=== PATIENT | female | born 1965 | race Caucasian/White ===

== ENCOUNTER 2016-07-16 12:53 | Emergency (ER) | payer OTHER ==
[~2016-07-16] VITALS: Wt 109.0 kg
[~2016-07-16 12:53] MED LIST: AMLO2.5T78 PO; ASPI-664 PO; ATOR10TA65 PO; DOXY-220 PO; ERGO500014 PO; ERGO500037 PO; MEDR5TAB PO
[2016-07-16] MEDS ORDERED: ASPIRIN 325 MG TAB PO STA (13:08)
[2016-07-16 13:49] LABS: BASOPHILS % 0.5 % (0.0-2.0); EOSINOPHILS # 0.5 10^3/ul (0.0-0.5); EOSINOPHILS % 5.6 % (0.0-7.0); HEMATOCRIT 42.8 % (37.0-47.0); HEMOGLOBIN 14.6 g/dl (12.0-16.0); LYMPHOCYTES % 31.1 % (15.0-51.0); MEAN CORPUSCULAR HGB CONC 34.1 g/dl (32.0-37.0); MEAN CORPUSCULAR VOLUME 85.1 fl (82.0-101.0); MEAN PLATELET VOLUME 8.6 fl (7.4-10.4); MONOCYTE # 0.9 10^3/ul (0.3-0.9); MONOCYTES % 9.2 % (0.0-11.0); NEUTROPHIL # 5.2 10^3/ul (1.6-7.5); NEUTROPHILS % 53.6 % (39.0-77.0); PLATELET COUNT 243 10^3/UL (140-440); RED BLOOD COUNT 5.03 10^6/ul (4.20-5.40); RED CELL DISTRIBUTION WIDTH 13.5 % (11.5-14.5); UNCORRECTED WBC 9.7 10^3/ul (4.8-10.8); WHITE BLOOD COUNT 9.7 10^3/ul (4.8-10.8)
[2016-07-16 13:51] LABS: CONDITION 1
[2016-07-16 13:54] LABS: CHLORIDE 102 mmol/L (97-110)
[2016-07-16 13:55] LABS: POTASSIUM 4.1 mmol/L (3.5-5.1); SODIUM 143 mmol/L (135-144)
[2016-07-16 13:56] LABS: INR 0.96; PROTIME 12.8 Sec (12.2-14.2)
[2016-07-16 13:57] LABS: CREATININE 0.68 mg/dl (0.44-1.00); PARTIAL THROMBOPLASTIN TIME 29.8 Sec (25.0-35.0)
[2016-07-16 13:58] LABS: ANION GAP 14 (8-16); BLOOD UREA NITROGEN 14 mg/dl (7-20); CALCIUM 9.2 mg/dl (8.4-10.2); CARBON DIOXIDE 31 mmol/L (21-31); GLUCOSE 94 mg/dl (70-220)
[2016-07-16] MEDS ORDERED: KETOROLAC 30 MG INJ IV STA (13:59)
[2016-07-16 14:07] LABS: B-TYPE NATRIURETIC PEPTIDE 179 PG/ML (0-125)
[2016-07-16 14:14] LABS: TROPONIN-I < 0.012 ng/ml (0.00-0.12)
[2016-07-16] MEDS ORDERED: ATOR40TA68 PO (14:16)
[2016-07-16] MEDS ORDERED: RANI150T9 PO (14:51)
[2016-07-16] MEDS ORDERED: NAPR-688 PO (14:51)
--- NOTE | 2016-07-16 15:00 | ERD ---
ER Documentation Chief Complaint Date/Time DATE: 07/16/16 TIME: 14:52 Chief Complaint CHEST PAIN SINCE THIS AM,MILD SOB. NO DIAPHORESIS, NONPROVOKED PER PT HPI This 81-year-old female presents to the ER for chest pain that began this morning. It is made worse by certain arm movements. It is made worse when she takes a deep breath. She thinks she may have an shortness of breath with it. He has no nausea vomiting. Has not had pain quite like this. Chest pain feels like a soreness like she got punched. No radiation. No shortness of breath currently ROS All systems reviewed and are negative except as per history of present illness. Medications Home Meds Active Scripts Naproxen* (Naproxen*) 500 Mg Tablet, 500 MG PO BID, #20 TAB Prov:SARITA MENENDEZ DO 07/16/16 Ranitidine Hcl* (Zantac*) 150 Mg Tablet, 150 MG PO BID, #60 TAB Prov:SARITA MENENDEZ DO 07/16/16 Reported Medications Atorvastatin* (Atorvastatin*) 40 Mg Tablet, 40 MG PO QHS, #30 TAB 07/16/16 Aspirin* (Aspirin* EC) 81 Mg Tablet.dr, 81 MG PO DAILY for 30 Days, TAB 11/07/15 Amlodipine Besylate* (Amlodipine Besylate*) 2.5 Mg Tablet, 2.5 MG PO DAILY, #30 TAB 11/06/15 Discontinued Reported Medications Ergocalciferol (Vitamin D2) (VITAMIN D2) 50,000 Unit Capsule, 88041 UNIT PO QSAT , #12 CAP 11/07/15 Atorvastatin Calcium (Atorvastatin Calcium) 10 Mg Tablet, 10 MG PO QHS for 30 Days, #30 TAB 11/07/15 Doxycycline Monohydrate* (Doxycycline Monohydrate*) 100 Mg Tablet, 100 MG PO BID , TAB STARTED ON 10-14-15 FOR 6 WEEKS 11/06/15 Medroxyprogesterone Acetate* (Medroxyprogesterone Acetate*) 5 Mg Tablet, 5 MG PO DAILY, TAB 11/06/15 Discontinued Scripts Atorvastatin Calcium (Atorvastatin Calcium) 10 Mg Tablet, 10 MG PO HS for 30 Days, TAB Prov:OSCAR PLUMMER ACUTE COORDINATOR 11/07/15 Ergocalciferol* (Drisdol* (Vitamin D2)) 50,000 Unit Capsule, 39900 UNIT PO Sa@09 , #12 CAP Prov:OSCAR PLUMMER ACUTE COORDINATOR 11/07/15 Aspirin* (Aspirin* EC) 81 Mg Tablet., 81 MG PO DAILY for 30 Days Prov:OSCAR PLUMMER ACUTE COORDINATOR 11/07/15 Allergies Allergies: Coded Allergies: aspirin (Verified Allergy, Mild, 11/06/15) Sulfa (Sulfonamide Antibiotics) (Verified Allergy, Unknown, 11/06/15) sulfacetamide (Verified Allergy, Unknown, 11/06/15) PMhx/Soc History of Surgery: No Anesthesia Reaction: No Hx Neurological Disorder: No Hx Respiratory Disorders: No Hx Cardiac Disorders: Yes (HTN) Hx Psychiatric Problems: No Hx Miscellaneous Medical Probl: No Hx Alcohol Use: No Hx Substance Use: No Hx Tobacco Use: No Smoking Status: Never smoker Physical Exam Vitals Vital Signs Date Time Temp Pulse Resp B/P Pulse Ox O2 Delivery O2 Flow Rate FiO2 07/16/16 13:30 Nasal Cannula 07/16/16 13:03 98.6 65 21 139/69 98 Physical Exam Const: [] No distress Head: Atraumatic Eyes: Normal Conjunctiva ENT: Normal External Ears, Nose and Mouth. Neck: Full range of motion..~ No meningismus. Resp: Clear to auscultation bilaterally Cardio: Regular rate and rhythm, no murmurs Chest wall exam: Tenderness to palpation and pain reproduced on resistance of arm flexion and forward direction causing pectoral muscle contraction. Abd: Soft, non tender, non distended. Normal bowel sounds Skin: No petechiae or rashes Back: No midline or flank tenderness Ext: No cyanosis, or edema Neur: Awake and alert and oriented 3, no focal deficits Psych: Normal Mood and Affect Result Diagram: 07/16/16 1330 07/16/16 1330 Results 24 hrs Laboratory Tests Test 07/16/16 13:30 Activated Partial Thromboplast Time 29.8Sec Anion Gap 14 B-Type Natriuretic Peptide 179PG/ML Basophils # 0.010^3/ul Basophils % 0.5% Blood Morphology Comment Blood Urea Nitrogen 14mg/dl Calcium Level 9.2mg/dl Carbon Dioxide Level 31mmol/L Chloride Level 102mmol/L Creatinine 0.68mg/dl Eosinophils # 0.510^3/ul Eosinophils % 5.6% Glucose Level 94mg/dl Hematocrit 42.8% Hemoglobin 14.6g/dl INR International Normalized Ratio 0.96 Lymphocytes # 3.010^3/ul Lymphocytes % 31.1% Mean Corpuscular Hemoglobin 29.0pg Mean Corpuscular Hemoglobin Concent 34.1g/dl Mean Corpuscular Volume 85.1fl Mean Platelet Volume 8.6fl Monocytes # 0.910^3/ul Monocytes % 9.2% Neutrophils # 5.210^3/ul Neutrophils % 53.6% Nucleated Red Blood Cells # 0.010^3/ul Nucleated Red Blood Cells % 0.0/100WBC Platelet Count 18705^3/UL Potassium Level 4.1mmol/L Prothrombin Time 12.8Sec Prothrombin Time Ratio 1.0 Red Blood Count 5.0310^6/ul Red Cell Distribution Width 13.5% Sodium Level 143mmol/L Troponin I < 0.012ng/ml White Blood Count 9.710^3/ul Current Medications Medications (Trade) Dose Ordered Sig/Veronica Route PRN Reason Start Time Stop Time Status Last Admin Dose Admin Aspirin (Aspirin) 325 mg ONCE STAT PO 07/16/16 13:08 07/16/16 13:09 DC 07/16/16 13:41 Ketorolac Tromethamine (Toradol) 30 mg ONCE STAT IV 07/16/16 13:59 07/16/16 14:00 DC 07/16/16 14:35 Procedures/MDM 51-year-old female with chest pain suspicious for costochondritis. Patient is completely nonischemic EKG and a negative troponin. Patient was given 325 mg aspirin. She was then given an injection of Toradol which relieved his pain dramatically. Now asymptomatic in the emergency room. When discharge with primary care follow-up instructions obtain an echocardiogram as soon as possible. Discharging with Zantac and naproxen as well. EKG interpretation: Normal sinus rhythm rate of 68, normal axis, no ST or T- wave changes concerning for acute ischemia, normal intervals. Normal EKG monitoring specialist interpretation: Normal sinus rhythm without arrhythmia Chest x-ray interpretation: No acute process no widened mediastinum pneumothorax no infiltrates, no pulmonary edema, no fractures Departure Diagnosis: Primary Impression: Costochondritis, acute Additional Impression: Chest pain Condition: Stable Patient Instructions: Costochondritis, Chest Pain, Uncertain Cause Additional Instructions: Llame al doctor KITTY y chanel sally ESCOBAR PARA DENTRO DE 1-2 HU. Consigue un referral para un ECHOCARDIOGRAM. Dgale a la secretaria que nosotros le instruimos hacer esta escobar.Avise o llame si rascon condicin se empeora antes de la escobar. Regresa aqui si peor o no mejor. SARITA MENENDEZ DO Jul 16, 2016 15:00
[2016-07-16 15:14] VITALS: BP 139/69; PULSE 78; RESP 20
--- NOTE | 2016-07-17 22:15 | RADRPT ---
PROCEDURE: XR Chest. CLINICAL INDICATION: Chest pain. TECHNIQUE: Single frontal view. COMPARISON: 11/06/2015. FINDINGS: The lungs are clear. The heart size is normal. There is no pleural effusion. There is no pneumothorax. IMPRESSION: 1. Normal chest radiograph. 2. No change from 11/06/2015. RPTAT: QQ .Justin Loco MD, MD Date Time Electronically viewed and signed by .Justin Loco MD, MD on 07/17/2016 22:14 .R/
== END 2016-07-16 15:15 | disposition home or self-care (01) ==
LOC: E/R 12:53
DX: M94.0 Chondrocostal junction syndrome [Tietze] (principal); R40.2142 Coma scale, eyes open, spontaneous, at arrival to emergency department; I10 Essential (primary) hypertension; R40.2252 Coma scale, best verbal response, oriented, at arrival to emergency department; R40.2342 Coma scale, best motor response, flexion withdrawal, at arrival to emergency department; R06.02 Shortness of breath; Z79.82 Long term (current) use of aspirin
CPT/HCPCS: 36415; 71010; 80048; 83880; 84484; 85025; 85610; 85730; 96374; J1885; Z7502; Z7610; 93005

== ENCOUNTER 2017-12-25 15:42 | Emergency (ER) | END 2017-12-25 19:44 | disposition home or self-care (01) ==